=== PATIENT | female | born 1955 | race Caucasian/White ===

== ENCOUNTER 2023-10-15 10:16 | Emergency (ER) | payer BC, MEDICAID ==
[~2023-10-15] VITALS: Ht 157.5 cm; Wt 60.0 kg
[2023-10-15 10:17] VITALS: O2SAT 98
[2023-10-15] MEDS ORDERED: IBUP-2028 MT (11:58)
[2023-10-15] MEDS: IBUPROFEN 600MG TABLET PO ONE (12:02)
[2023-10-15 12:58] VITALS: BP 138/89; PULSE 93; RESP 16; TEMP 98.2
== END 2023-10-15 13:00 | disposition home or self-care (01) ==
LOC: ER 10:16
DX: R52 Pain, unspecified (principal); E11.9 Type 2 diabetes mellitus without complications
CPT/HCPCS: 99283